=== PATIENT | female | born 1975 | race Caucasian/White ===

== ENCOUNTER 2024-09-24 17:16 | Inpatient (IN) | payer BC, SELFPAY ==
[2024-09-24] VITALS (12 sets, daily range): BP systolic 123–178; BP diastolic 75–110; BMI 28.5; BMI 28.7
[2024-09-24 14:27] LABS: % Basophils 0.5 % (0-2); % Eosinophils 6.1 % (0-6); % Immature Granulocytes 0.3 % (0-0.5); % Lymphocytes 22.2 % (20.5-51.1); % Monocytes 10.3 % (1.7-9.3); % Neutrophils 60.6 % (42.2-75.2); Absolute Basophils 0.1 10^3/uL (0-0.2); Absolute Eosinophils 0.6 10^3/uL (0-0.7); Absolute Lymphocytes 2.3 10^3/uL (1.2-3.4); Absolute Monocytes 1.1 10^3/uL (0.1-0.6); Absolute Neutrophils 6.2 10^3/uL (1.4-6.5); Hematocrit 41.9 % (37.0-47.0); Hemoglobin 14.4 g/dL (12.0-16.0); Mean Corp Hgb Conc. 34.4 g/dL (33.0-37.0); Mean Corpuscular Volume 87.3 fL (81.0-99.0); Mean Platelet Volume 10.8 fL (7.4-10.4); Nucleated Red Blood Cells % 0 %; Platelet Count 279 10^3/uL (130-400); Red Cell Dist. Width 12.6 % (11.5-14.5); White Blood Cell Count 10.2 10^3/uL (4.8-10.8)
[2024-09-24 14:43] LABS: ALT (SGPT) 37 U/L (0-35); AST (SGOT) 30 U/L (14-36); Albumin 4.7 g/dl (3.5-5.0); Alkaline Phosphatase 77 U/L (38-126); Blood Urea Nitrogen 16 mg/dl (7-17); Calcium 9.4 mg/dl (8.4-10.2); Carbon Dioxide 24 mmol/L (22-30); Chloride 103 mmol/L (98-107); Glucose 87 mg/dl (70-99); Potassium 4.2 mmol/L (3.5-5.1); Sodium 137 mmol/L (135-145); Total Bilirubin 0.9 mg/dl (0.2-1.3); eGFR > 60.00
[2024-09-24 14:52] LABS: Troponin I 0.197 ng/ml
--- NOTE | 2024-09-24 15:05 | EDRN ---
Deric Rouse notified of critical value troponin
--- NOTE | 2024-09-24 15:22 | ED.GENMED ---
History of Present Illness
<Dafne Morris NP - Last Filed: 09/25/24 23:34>
General
Chief Complaint: Abdominal Pain
Source: patient
Exam Limitations: none
Time Seen by Provider: 09/24/24 15:07
Nursing documentation reviewed up to this point in time: agreed with
History of Present Illness
History of Present Illness:
Patient to ED with complaint of left upper quad abd/left lower chest pain. She reports pain is under ribs. Symptoms started approx 1 week ago while sitting on couch. Reports pain is constant and dull but has episodes of sharp contraction like
pain with movement, cough, deep breathing. +nausea, no vomiting/diarrhea. Had URI a few weeks ago with cough but this has resolved. Eating and drinking normally. Reports sleep is disrupted because she continue to feel the pain. Brought to ED by
friend for eval. PMH asthma, hiatal hernia. States she saw cardiology in the past for epigastric pain. Denies any hear issues. States she was referred to GI, dx hiatal hernia.
Past History
<Dafne Morris NP - Last Filed: 09/25/24 23:34>
Past History
ED Past Medical History: Asthma and GERD (hiatal hernia)
ED Past Surgical History: Other (Chai stone)
Social History
Tobacco: Non-smoker
Alcohol: Occasional
Drug: None
Employment: Employed
Review of Systems
<Dafne Morris [employer] - Last Filed: 09/25/24 23:34>
Review of Systems
Allergies reviewed?: Yes
All Other Systems: ROS reviewed and negative except as documented in HPI and ROS
Constitutional: Reports no symptoms
Respiratory: Reports other (worsening pain with deep breathing, coughing)
Cardiac: Reports chest pain (Left lower chest pain, describes as under ribs)
ABD/GI: Reports abdominal pain (LUQ abd pain)
: Reports no symptoms
Musculoskeletal: Reports no symptoms
Skin: Reports no symptoms
Neurological: Reports no symptoms
Psychiatric: Reports no symptoms
Phy Exam
<Dafne Morris NP - Last Filed: 09/25/24 23:34>
General Physical Exam
General Presentation: well appearing and no apparent distress
General age: appears stated age
General Skin: warm and dry
General Habitus: normal
General Mental: alert
General Hydration: appears well hydrated
Cardiovascular Exam
Cardiovascular Exam: regular rate/rhythm and no edema
Pulmonary Exam
Pulmonary Exam: lungs clear, no respiratory distress and chest non tender (pain left lower chest wall)
Gastrointestinal Exam
Gastrointestinal Exam: normal bowel sounds, soft, no organomegaly, non distended and no cva tenderness
Palpation: left upper quadrant: Moderate tenderness, left lower quadrant: No tenderness, right upper quadrant: No tenderness and right lower quadrant: No tenderness
Musculoskeletal Exam
Musculoskeletal Exam: full ROM
Skin Exam
Skin Exam: normal color, warm/dry and no rash
Psychiatric Exam
Psychiatric Exam: normal mood/affect
Course
<Dafne Morris NP - Last Filed: 09/25/24 23:34>
Orders/Labs/Results
Orders:
Orders
09/24/24 12:53
EKG [Electrocardiogram (*1)] Urgent
Reason for Study: Abdominal Pain
EKG- Treatment ONCE
09/24/24 14:13
CMP [Comprehensive Metabolic Panel] Urgent
Complete Blood Count/With Diff Urgent
Lipase Urgent
09/24/24 14:18
Troponin I Urgent
09/24/24 Dinner
Cholesterol Lowering
At Your Request: Full Participation
Does patient need a safe tray?: No
Cholesterol Lowering: Sodium, 2 Gram
09/24/24 15:19
Aspirin 325 mg PO NOW STA
Heparin 4,000 units IV NOW STA
Nitroglycerin Sublingual [Nitrostat (Sublingual)] 0.4 mg SL NOW STA
Pharmacy Request to Place See Dose Instructions PO NOW STA
Discontinue all Active Warfarin orders?: Yes
09/24/24 15:30
Heparin 25513 Units/250 ml 25,000 units in 250 ml IV PER PROTOCOL
Weight to be used for heparin protocol in kilograms (kg):: 70.5
Protocol:: Cardiac Tx/Acute Coronary
PTT Goal Range to be used:: PTT 73 to 111 seconds
Order type:: Initial
INITIAL Infusion Dose (UNITS/KG/hr) & then follow protocol:: 15 units/kg/hr
Infusion Dose in UNITS/hr & then follow protocol (UNITS/hr):: 1,050
INFUSION RATE in mL/hr & then follow protocol (mL/hr):: 10.5
PTT less than or equal to 64 seconds:: Increase rate by 200 units/hr (+ 2 mL/hr)
PTT 64.1 to 72.9 seconds:: Increase rate by 100 units/hr (+ 1 mL/hr)
PTT 73 to 111 seconds:: Target Range. No change in rate.
PTT 111.1 to 130.9 seconds:: Decrease rate by 100 units/hr (- 1 mL/hr)
PTT 131 to 199.9 seconds:: HOLD for 1 hr. Then decrease rate by 200 units/hr (- 2 mL/hr)
PTT greater than or equal to 200 seconds:: HOLD for 2 hrs & Notify Provider. Then decrease by 200 units/hr (-
2 mL/hr)
Lab follow-up:: Each change, PTT q6h until 2 consecutive are therapeutic. Then PTT
daily.
09/24/24 15:32
CT Chest PE Study Urgent
Comment:
Reason For Exam: left chest/abd pain, elevated DDimer
09/24/24 15:40
PTT Urgent
Comment: Obtain baseline before beginning heparin infusion if not already collected
09/24/24 16:[address] See Dose Instructions IV DIRECTED
09/24/24 16:43
Admit/Transfer Patient As Directed
Co-Sign Provider:
Level of Care: Inpatient admission
Assign to:: Telemetry
Physician / Group: Kenrick Lee
Diagnosis: ACS r/o
Reason for Telemetry: Arrhythmia
Date to Stop Telemetry: 09/27/24
Time to Stop Telemetry: 11:00
Reason for Hospitalization: Chest pain for 1 week, elevated troponin. Cardiac workup with possible cath
Expected length of stay greater than two midnights?: Yes
ELOS- Estimated Length of Stay in days: 3
I certify the patient meets the requirements for IP care: Yes
PRN Pain Medication Management As Directed
May give lesser potent ordered pain med per pt: Yes
preference::
Protocol:: Medication orders for pain may be administered in a
manner that supports deferring to patient preference
when the pt is:
- Requesting an ordered lesser potent pain medication.
Least to most potent pain medications are defined
as: acetaminophen < NSAID < tramadol < opioids
(morphine, oxycodone, hydromorphone).
- Requesting a lesser dose of the same medication IF
ORDERED.
- Requesting a less intrusive route of administration
if both routes are prescribed by the provider (PO <
IV).
09/24/24 16:44
Code Status As Directed
Resuscitation Status: Full Code
09/24/24 16:46
Acetaminophen [Tylenol] 650 mg PO Q4HPRN PRN
Nitroglycerin Sublingual [Nitrostat (Sublingual)] 0.4 mg SL [id number] PRN
09/24/24 17:00
Pantoprazole [Protonix] 40 mg PO DAILY
09/24/24 18:35
Albuterol [ProAIR HFA INHALER] 2 puff INH R Q6HPRN PRN
Bisacodyl [Dulcolax] 10 mg RECTAL [id number] PRN
Bismuth Subsalicylate [Lima Bismuth] 525 mg PO DAILYPRN PRN
Docusate W/Senna [Senokot-S] 1 tablet PO BIDPRN PRN
Polyethylene Glycol Powder [Miralax] 17 grams PO DAILYPRN PRN
09/24/24 18:35
Activity As Directed
Activity Level: Out of Bed-Early Mobility
ECG as needed As Directed
ECG as needed for:: Chest Pain
Additional Instructions:: ECG with each troponin draw
Intake/ Output As Directed
Frequency: Per unit guidelines
Pneumatic Compression Sleeves As Directed
Type: Knee high
Vital Signs As Directed
Frequency: Per unit guidelines
Weight As Directed
Frequency: Daily
DX Deep Vein Thrombosis Video Routine
09/24/24 20:00
Fluticasone/Salmeterol 115/21 [Advair Hfa 115/21 Mcg Inhaler] 2 puff INH R BID
09/24/24 21:58
PTT Urgent
09/25/24
Echo 2D MMode Color/Doppler Routine
Reason for Study: AF
09/25/24 00:44
Troponin I Q6H
09/25/24 05:06
Basic Metabolic Panel IN AM
Cardiovascular Evaluation IN AM
Complete Blood Count/With Diff IN AM
Hemoglobin A1c [Glycohemoglobin (HgbA1c)] IN AM
Magnesium IN AM
Troponin I Q6H
09/27/24 11:00
DC Protocol for Telemetry ONCE
Abnormal Lab Results
09/24/24 09/24/24
14:13 14:18
MPV 10.8 H fL
(7.4-10.4)
Absolute Monos (auto) 1.1 H 10^3/uL
(0.1-0.6)
Monocytes % 10.3 H %
(1.7-9.3)
Eosinophils % 6.1 H %
(0-6)
ALT 37 H U/L
(0-35)
Troponin I 0.197 H* ng/ml
09/24/24 14:13
09/24/24 14:13
Vital Signs
Initial and Last Documented VS:
Initial Vital Signs
Temp Pulse Resp BP Pulse Ox
98 F 81 16 177/110 97
09/24/24 12:46 09/24/24 12:46 09/24/24 12:46 09/24/24 12:46 09/24/24 12:46
Last Documented Vital Signs
Temp Pulse Resp BP Pulse Ox
97.9 F 67 14 168/96 96
09/25/24 18:59 09/25/24 20:18 09/25/24 20:18 09/25/24 18:59 09/25/24 20:18
<Libia Holley MD - Last Filed: 09/24/24 15:35>
Orders/Labs/Results
Orders:
Orders
09/24/24 12:53
EKG [Electrocardiogram (*1)] Urgent
Reason for Study: Abdominal Pain
EKG- Treatment ONCE
09/24/24 14:13
CMP [Comprehensive Metabolic Panel] Urgent
Complete Blood Count/With Diff Urgent
Lipase Urgent
09/24/24 14:18
Troponin I Urgent
09/24/24 Dinner
Cholesterol Lowering
At Your Request: Full Participation
Does patient need a safe tray?: No
Cholesterol Lowering: Sodium, 2 Gram
09/24/24 15:19
Aspirin 325 mg PO NOW STA
Heparin 4,000 units IV NOW STA
Nitroglycerin Sublingual [Nitrostat (Sublingual)] 0.4 mg SL NOW STA
Pharmacy Request to Place See Dose Instructions PO NOW STA
Discontinue all Active Warfarin orders?: Yes
09/24/24 15:30
Heparin 40261 Units/250 ml 25,000 units in 250 ml IV PER PROTOCOL
Weight to be used for heparin protocol in kilograms (kg):: 70.5
Protocol:: Cardiac Tx/Acute Coronary
PTT Goal Range to be used:: PTT 73 to 111 seconds
Order type:: Initial
INITIAL Infusion Dose (UNITS/KG/hr) & then follow protocol:: 15 units/kg/hr
Infusion Dose in UNITS/hr & then follow protocol (UNITS/hr):: 1,050
INFUSION RATE in mL/hr & then follow protocol (mL/hr):: 10.5
PTT less than or equal to 64 seconds:: Increase rate by 200 units/hr (+ 2 mL/hr)
PTT 64.1 to 72.9 seconds:: Increase rate by 100 units/hr (+ 1 mL/hr)
PTT 73 to 111 seconds:: Target Range. No change in rate.
PTT 111.1 to 130.9 seconds:: Decrease rate by 100 units/hr (- 1 mL/hr)
PTT 131 to 199.9 seconds:: HOLD for 1 hr. Then decrease rate by 200 units/hr (- 2 mL/hr)
PTT greater than or equal to 200 seconds:: HOLD for 2 hrs & Notify Provider. Then decrease by 200 units/hr (-
2 mL/hr)
Lab follow-up:: Each change, PTT q6h until 2 consecutive are therapeutic. Then PTT
daily.
09/24/24 15:32
CT Chest PE Study Urgent
Comment:
Reason For Exam: left chest/abd pain, elevated DDimer
09/24/24 15:40
PTT Urgent
Comment: Obtain baseline before beginning heparin infusion if not already collected
09/24/24 16:[address] See Dose Instructions IV DIRECTED
09/24/24 16:43
Admit/Transfer Patient As Directed
Co-Sign Provider:
Level of Care: Inpatient admission
Assign to:: Telemetry
Physician / Group: Kenrick Lee
Diagnosis: ACS r/o
Reason for Telemetry: Arrhythmia
Date to Stop Telemetry: 09/27/24
Time to Stop Telemetry: 11:00
Reason for Hospitalization: Chest pain for 1 week, elevated troponin. Cardiac workup with possible cath
Expected length of stay greater than two midnights?: Yes
ELOS- Estimated Length of Stay in days: 3
I certify the patient meets the requirements for IP care: Yes
PRN Pain Medication Management As Directed
May give lesser potent ordered pain med per pt: Yes
preference::
Protocol:: Medication orders for pain may be administered in a
manner that supports deferring to patient preference
when the pt is:
- Requesting an ordered lesser potent pain medication.
Least to most potent pain medications are defined
as: acetaminophen < NSAID < tramadol < opioids
(morphine, oxycodone, hydromorphone).
- Requesting a lesser dose of the same medication IF
ORDERED.
- Requesting a less intrusive route of administration
if both routes are prescribed by the provider (PO <
IV).
09/24/24 16:44
Code Status As Directed
Resuscitation Status: Full Code
09/24/24 16:46
Acetaminophen [Tylenol] 650 mg PO Q4HPRN PRN
Nitroglycerin Sublingual [Nitrostat (Sublingual)] 0.4 mg SL [id number] PRN
09/24/24 17:00
Pantoprazole [Protonix] 40 mg PO DAILY
09/24/24 18:35
Albuterol [ProAIR HFA INHALER] 2 puff INH R Q6HPRN PRN
Bisacodyl [Dulcolax] 10 mg RECTAL [id number] PRN
Bismuth Subsalicylate [Lima Bismuth] 525 mg PO DAILYPRN PRN
Docusate W/Senna [Senokot-S] 1 tablet PO BIDPRN PRN
Polyethylene Glycol Powder [Miralax] 17 grams PO DAILYPRN PRN
09/24/24 18:35
Activity As Directed
Activity Level: Out of Bed-Early Mobility
ECG as needed As Directed
ECG as needed for:: Chest Pain
Additional Instructions:: ECG with each troponin draw
Intake/ Output As Directed
Frequency: Per unit guidelines
Pneumatic Compression Sleeves As Directed
Type: Knee high
Vital Signs As Directed
Frequency: Per unit guidelines
Weight As Directed
Frequency: Daily
DX Deep Vein Thrombosis Video Routine
09/24/24 20:00
Fluticasone/Salmeterol 115/21 [Advair Hfa 115/21 Mcg Inhaler] 2 puff INH R BID
09/24/24 21:58
PTT Urgent
09/25/24
Echo 2D MMode Color/Doppler Routine
Reason for Study: AF
09/25/24 00:44
Troponin I Q6H
09/25/24 05:06
Basic Metabolic Panel IN AM
Cardiovascular Evaluation IN AM
Complete Blood Count/With Diff IN AM
Hemoglobin A1c [Glycohemoglobin (HgbA1c)] IN AM
Magnesium IN AM
Troponin I Q6H
09/27/24 11:00
DC Protocol for Telemetry ONCE
Abnormal Lab Results
09/24/24 09/24/24
14:13 14:18
MPV 10.8 H fL
(7.4-10.4)
Absolute Monos (auto) 1.1 H 10^3/uL
(0.1-0.6)
Monocytes % 10.3 H %
(1.7-9.3)
Eosinophils % 6.1 H %
(0-6)
ALT 37 H U/L
(0-35)
Troponin I 0.197 H* ng/ml
09/24/24 14:13
09/24/24 14:13
Vital Signs
Initial and Last Documented VS:
Initial Vital Signs
Temp Pulse Resp BP Pulse Ox
98 F 81 16 177/110 97
09/24/24 12:46 09/24/24 12:46 09/24/24 12:46 09/24/24 12:46 09/24/24 12:46
Last Documented Vital Signs
Temp Pulse Resp BP Pulse Ox
97.9 F 67 14 168/96 96
09/25/24 18:59 09/25/24 20:18 09/25/24 20:18 09/25/24 18:59 09/25/24 20:18
<Dafne Morris NP - Last Filed: 09/25/24 23:34>
*Critical Care Note
Total Time (30-74mins, 75-104mins- exclusive of procedures): Not Applicable
<Dafne Morris NP - Last Filed: 09/25/24 23:34>
Update Note
Update Note:
Patient to ED with complaint of left lower chest/LUQ abdominal pain. Pain started one week ago. COnstant dull pain. Pain becomes sharg and then 'contraction like' with deep breathing, cough, sneezing. EKG NSR, Troponine .197. Case discussed
with dr. holley. WIll initiate ACS protical with ASA, SL NTG, Heparin infusion. WIll obtain Chest CT to r/o PE. Pulse ox remains 98% RA. Admit to hospitalist service.
ED Attending Note
<Dafne Morris [employer] - Last Filed: 09/25/24 23:34>
-
Portions of this chart may have been created with voice recognition software.� Occasional wrong word or��sound alike� substitutions may have occurred due to the inherent limitations of voice recognition software.
<Libia Holley MD - Last Filed: 09/24/24 15:35>
ED Attending Note
Patient seen and examined by attending physician: Yes
I performed the substantive portion of visit, reviewed & personally made and approve the management plan that is documented in note by myself or NICK.: Yes
ED Attending Note:
49-year-old female with complaints of left lower anterior chest wall/upper quadrant pain that is described as 'dull' and constant for 1 week. Sometimes the pain changes particular if she moves a certain way and it will start to feel 'sharp', or if
she coughs. She thought it might be gas, but has not gone away which prompted her visit here. Sometimes she feels like she got the wind 'knocked out of me', without any specific provoking or relieving factors. She denies dyspnea, nausea,
vomiting, diaphoresis, neck pain, leg swelling, estrogen use, smoking history, family or personal history of clots, or other PE risk factors. She states that she had a 'mild heart attack' 10 years ago and sees a cell tender once a year but denies
a catheterization or stent placement. She also states that there is a family history of coronary disease but is unclear if it was early. No history of aortic disease and family. On exam, patient awake alert nontoxic well-appearing. Does describe
a 5 out of 10 dull discomfort which has been constant. Heart regular rate and rhythm. Grossly neuro intact. Troponin and ECG noted. Patient will be started on a heparin drip, nitroglycerin, aspirin, and a CT PE study pending. Hospitalist to be
made aware goal to be to make patient pain-free in the meantime.
Discharge Plan
Departure
Patient Disposition: Admit
Date of Disposition: 09/24/24
Time of Disposition: 15:37
Presentation/result/management discussed w/ accepting MD/DO: Hospitalist
Patient with high blood pressure during this ER visit?: Yes
Condition: Fair
Covid-19: Not Applicable
Discharge Problem:
Chest pain, ACS (acute coronary syndrome)
Interventions
Interventions:
*Risk Screen - Suicide Last Done: 09/24/24 18:22
*General Assessment Last Done: 09/24/24 18:00
*Neglect/Abuse Screening Last Done: 09/24/24 12:46
ED- Fall Risk Assessment Last Done: 09/24/24 14:50
*ED COVID-19 Vaccine History Last Done: 09/24/24 14:47
*Nursing Disposition Last Done: 09/24/24 18:00
Discharge Date and Time
Discharge Date/Time: 09/24/24 18:01
[2024-09-24] MEDS: HEPARIN 25000 UNITS/250 ML IV (15:46)
[2024-09-24] MEDS: HEPARIN 4000 UNITS IV (15:47)
[2024-09-24] MEDS: NITROSTAT (SUBLINGUAL) 0.4 MG SL (15:49)
[2024-09-24] MEDS: ASPIRIN 325 MG PO (15:49)
[2024-09-24 16:01] LABS: APTT 28.9 Sec (23.4-35.0)
--- NOTE | 2024-09-24 16:40 | HPS.HSE ---
Addendum entered and electronically signed by Kenrick Lee DO 09/24/24 18:56:
Spoke with cardiology, cannot rule out pericarditis despite normal ECG. Will F/U TTE and give dose of colchicine with consideration for colchicine + NSAID pending further evidence of the etiology. Will also add-on lipase to ED blood work
Original Note:
Family Physician
-
Family Physician: * NONE
Chief Complaint
-
Chest/epigastric pain
History of Present Illness
49-year-old female with Asthma and GERD/HH that is presenting to the emergency department today with a complaint of chest pain/epigastric pain. States that the pain feels like it is under her ribs, started roughly 1 week ago when she was sitting on
the couch. Pain has been constant, characterized as dull with intermittent episodes of sharp pain most notable with movement, coughing or deep breathing. Symptoms have been associated with nausea but no vomiting or diarrhea. Mentions she had a
upper respiratory infection a few weeks ago with a cough that has since resolved. Her sleep has been disrupted secondary to the pain. Was brought into the emergency department by her friend today. She denies worsening of symptoms with exertion.
Denies significant smoking or alcohol use history. States that she does have history of heart disease with her maternal grandmother and aunt though no disease noted in her immediate family. Upon arrival to the ED was hypertensive but otherwise
hemodynamically stable and on room air, no fevers. Labs with troponin 0.197 but otherwise unremarkable. ECG with normal sinus rhythm and no acute ST changes, T wave abnormalities, STEMI equivalents nor evidence of Q waves. CTA thorax PE protocol
ordered with results pending. In the ED was given full dose aspirin and subsequently started on heparin drip. Chest pain improved after 2 doses of nitroglyceri SL.
Medical History
Past Medical History
Past Medical History: Reports Asthma and GERD
Past Surgical History: Reports Urological (Stone retrieval in 2006)
Social History
Tobacco: Non-smoker
Alcohol: Occasional
Drug: None
Family History
Family History: Other (CHF: maternal aunt and grandmother)
Allergies / Home Medications
Allergies reflects when Allergies were last updated in [employer].
Home Medications with original date entered in [employer]
Allergy/Medication List:
Allergies
Allergy/AdvReac Type Severity Reaction Status Date / Time
No Known Allergies Allergy Verified 09/24/24 15:56
Home Medications
albuterol sulfate 90 mcg/actuation aerosol inhaler 2 puff inhalation R Q6HPRN PRN SOB 09/24/24
bismuth subsalicylate 262 mg/15 mL oral suspension (Pepto-Bismol) 524 mg PO DAILYPRN PRN STOMACH ISSUSES 09/24/24
fluticasone 250 mcg-salmeterol 50 mcg/dose blistr powdr for inhalation (Advair Diskus) 1 inh inhalation R BID 09/24/24
ibuprofen 200 mg tablet (Advil) 200 mg PO Q6HPRN PRN MILD PAIN 09/24/24
Review of Systems
-
History Source: Patient
A 12 point ROS was completed and negative except as noted: Yes
Constitutional: Reports No Symptoms
EENT: Reports No Symptoms
Respiratory: Reports No Symptoms
Cardiac: Reports See HPI
Abdomen/GI: Reports See HPI
: Reports No Symptoms
Musculoskeletal: Reports No Symptoms
Skin: Reports No Symptoms
Neurological: Reports No Symptoms
Endocrine: Reports No Symptoms
Hematologic/Lymphatic: Reports No Symptoms
Psych: Reports No Symptoms
Physical Exam
Vital Signs
Vital Signs
Temp Pulse Resp BP Pulse Ox
98 F 82 27 154/90 95
09/24/24 12:46 09/24/24 16:15 09/24/24 16:15 09/24/24 16:00 09/24/24 16:15
Physical Exam
General: Well Developed, Well Nourished and No Apparent Distress
HEENT: NormoCephalic, Anicteric, Moist mucous membranes, Atraumatic and PERRLA
Respiratory: Clear and Non Labored Respirations; No Accessory Resp Muscle Use
Cardiac: S1/S2 and Regular Rhythm; No Murmur, Rub, Gallop, Peripheral Edema or JVD
GI: Soft, Non Tender, Non Distended and Normal Bowel Sounds
Musculoskeletal: No Clubbing, No Cyanosis and Normal Gait & Station
Skin: Warm and Dry; No Rash or Jaundice
Neuro: AO x 3 and Cranial Nerves Intact; No Tremors
Psych: Calm
Laboratory Results
-
09/24/24 14:13
09/24/24 14:13
Laboratory Results
APTT 28.9 Sec (23.4-35.0) 09/24/24 15:40
Total Bilirubin 0.9 mg/dl (0.2-1.3) 09/24/24 14:13
AST 30 U/L (14-36) 09/24/24 14:13
ALT 37 U/L (0-35) H 09/24/24 14:13
Alkaline Phosphatase 77 U/L (38-126) 09/24/24 14:13
Troponin I 0.197 ng/ml H* 09/24/24 14:18
Data Reviewed
-
Lab Data: Labs Reviewed by me and Discussed with Physician ([employer])
Impression/Plan
-
#Chest pain
-Concern for NSTEMI/MINOCA v. PE; cannot rule out GERD/gastritis versus MSK cause
-Presented with atypical chest pain over 1 week, persistent and pleuritic quality
-Does not seem to have underlying comorbidities elevated risk
-Upon arrival ECG nonischemic, no Q waves; initial troponin 0.197
-Was given full dose aspirin and started on heparin drip while in the ED
-No signs of renal insufficiency or other contraindications to angiography
-Melanie score 56 correlating to 1% 6-month mortality risk
Plan
-Continue with IV heparin drip with cardiac protocol
-Trend troponin with serial ECG, admit to telemetry
-Defer against beta-blockade unless HR accelerates
-Check fasting lipid panel, A1c, CXR and CT PE protocol
-Check echocardiogram for WMA and systolic dysfunction
-Cardiology consult for consideration of LHC
-PRN nitroglycerine SL
-PPI trial
#Asthma
-Home regimen includes Advair twice daily and albuterol MDI as needed
-No signs of CO2 retention or asthma exacerbation at this time
-Monitor respiratory status
#GERD with hiatal hernia
-Home regimen includes bismuth subsalicylate
-Outpatient med rec also shows ibuprofen
-Will start oral PPI to assess for improved symptoms
-Avoid NSAIDs
DVT prophylaxis: Heparin drip
Diet: Cholesterol-lowering, NPO at midnight
CODE STATUS: Full code
Disposition: Admit to telemetry
--- NOTE | 2024-09-24 18:15 | CON.CAR ---
Consultation
Consultation Request
Date/Time Consultation Requested: September 24, 2024 5:30 PM
Date/Time Consultation Performed: September 24, 2024 6:30 PM
Requesting Provider: Hospitalist
Performing Provider: Luis Daniel Avila
Reason for Consultation: Chest pain
Medical History
-
Chief Complaint: chest/epigastric pain
History of Present Illness:
49-year-old female with history of asthma, GERD, and hiatal hernia who is here for evaluation of left upper quadrant abdominal and left-sided chest pain. She says it has been ongoing for about a week. It started while she was sitting on the couch.
It has been waxing and waning and has interrupted her sleep. She tells me it is positional and it feels better laying fwd and on her left side. It is constant and is characterized as dull with intermittent episodes of sharp pain especially with
movement coughing or deep breathing. She had a URI a few weeks ago that has since resolved. Finally, she has taken ibuprofen intermittently which improved her symptoms.
Past Medical History
Past Medical History: Other (asthma, GERD, and hiatal hernia)
Social History
Tobacco: Non-Smoker
Alcohol: Occasional
Drug: None
Family History
Family History: Reviewed & Not Pertinent
Allergies / Home Medications
Allergy/AdvReac Type Severity Reaction Status Date / Time
No Known Allergies Allergy Verified 09/24/24 15:56
�Medication �Instructions �Recorded �Confirmed �Type
albuterol sulfate 90 mcg/actuation 2 puff inhalation R Q6HPRN PRN SOB 09/24/24 09/24/24 History
aerosol inhaler
bismuth subsalicylate 262 mg/15 mL 524 mg PO DAILYPRN PRN STOMACH 09/24/24 09/24/24 History
oral suspension (Pepto-Bismol) ISSUSES
fluticasone 250 mcg-salmeterol 50 1 inh inhalation R BID 09/24/24 09/24/24 History
mcg/dose blistr powdr for
inhalation (Advair Diskus)
ibuprofen 200 mg tablet (Advil) 200 mg PO Q6HPRN PRN MILD PAIN 09/24/24 09/24/24 History
Review of Systems
-
All other systems: Negative unless noted
Physical Exam
Vital Signs
Temp Pulse Resp BP Pulse Ox
98 F 82 21 138/93 95
09/24/24 12:46 09/24/24 17:57 09/24/24 17:57 09/24/24 17:00 09/24/24 17:15
Lab Results
09/24/24 14:13
09/24/24 14:13
Troponin I 0.197 ng/ml H* 09/24/24 14:18
Physical Exam
General: Well Developed, Well Nourished and No Apparent Distress
HEENT: Normocephalic
Respiratory: Clear and Non Labored Respirations
Cardiac: S1/S2 and Regular Rhythm
GI: Soft and Other (Point tenderness mid clavicular line underneath rib cage)
Musculoskeletal: No Cyanosis and No Edema
Skin: Warm and Dry
Neuro: AO x 3
Psych: Calm
Impression / Plan
-
A/P: 49-year-old female with past medical history of GERD, hiatal hernia, and asthma who is here for evaluation of left-sided chest discomfort. It is not clear to me that this is acute coronary syndrome as she has no typical symptoms of angina.
Her symptoms seem to be most consistent with pericarditis/myopericarditis as her cardiac troponins are elevated. Additionally, the pleuritic nature, improvement on ibuprofen, and improvement with position seem to support a
pericarditis/myopericarditis diagnosis. She also had a viral URI within the last few weeks. Her ECG is also normal with no significant ischemic changes as well.
ACS versus pericarditis/myopericarditis given elevated troponin
-Trend troponin
-Start colchicine 0.6 mg twice daily
-Obtain echocardiogram
-Lipid profile hemoglobin A1c
-If troponins are relatively flat and echocardiogram has normal function likely supportive of pericarditis/myopericarditis I would consider cardiac MRI to support diagnosis
-Pericarditis/myopericarditis we would then treat with high-dose NSAIDs likely ibuprofen 800 mg 3 times daily for 4 weeks with tapering by 200 mg each week and colchicine for 3 months
-Rule out other causes including pancreatitis although less likely
Data Reviewed
-
EKG: Tracing Personally Visualized and interpreted (sr)
Radiology: Image Personally Visualized and interpreted and Discussed with Physician
CT Scan: Image Personally Visualized and interpreted and Discussed with Physician
Labs: Labs Reviewed by me and Discussed with Physician
[2024-09-24] MEDS: PROTONIX 40 MG PO (18:42)
[2024-09-24 19:09] LABS: Troponin I 0.176 ng/ml
[2024-09-24 19:34] LABS: Lipase 105 U/L (23-300)
[2024-09-24] MEDS: TYLENOL 650 MG PO (20:08)
[2024-09-24] MEDS: COLCHICINE 0.6 MG PO (20:09)
[2024-09-24] MEDS: ASPIRIN 650 MG PO (20:42)
[2024-09-24 22:19] LABS: APTT 67.5 Sec (23.4-35.0)
--- NOTE | 2024-09-25 01:09 | PTCARENOTE ---
Received patient on Heparin at 1050unit/hr. Reviewed order for ASA with [employer]FT TIME CLERK, covering floor(verified with Cards) and Pharmacy. Administered per order. Heparin adjusted per protocol for PTT. Troponin 0.176, continue to trend.
[2024-09-25] MEDS: ADVAIR HFA 115/21 MCG INHALER INH (02:50)
[2024-09-25] MEDS: TYLENOL 650 MG PO ×2 (03:23→19:03)
[2024-09-25 03:50] VITALS: BP 137/75
[2024-09-25 05:17] VITALS: BMI 28.6
[2024-09-25 05:26] LABS: APTT 97.6 Sec (23.4-35.0)
[2024-09-25 05:43] LABS: % Basophils 0.7 % (0-2); % Eosinophils 7.9 % (0-6); % Immature Granulocytes 0.1 % (0-0.5); % Monocytes 8.6 % (1.7-9.3); % Neutrophils 51.7 % (42.2-75.2); Absolute Basophils 0.1 10^3/uL (0-0.2); Absolute Eosinophils 0.6 10^3/uL (0-0.7); Absolute Lymphocytes 2.5 10^3/uL (1.2-3.4); Absolute Monocytes 0.7 10^3/uL (0.1-0.6); Absolute Neutrophils 4.2 10^3/uL (1.4-6.5); Hematocrit 41.7 % (37.0-47.0); Hemoglobin 14.3 g/dL (12.0-16.0); Mean Corp Hgb Conc. 34.3 g/dL (33.0-37.0); Mean Corpuscular Hgb 30.2 pg (27.0-31.0); Mean Platelet Volume 11.6 fL (7.4-10.4); Nucleated Red Blood Cells % 0 %; Platelet Count 261 10^3/uL (130-400); Red Blood Cell Count 4.74 10^6/uL (4.20-5.40); Red Cell Dist. Width 12.7 % (11.5-14.5); White Blood Cell Count 8.1 10^3/uL (4.8-10.8)
[2024-09-25] MEDS: MOTRIN 400 MG PO (05:44)
[2024-09-25 05:50] LABS: Troponin I 0.149 ng/ml
[2024-09-25 05:57] LABS: Blood Urea Nitrogen 18 mg/dl (7-17); Carbon Dioxide 23 mmol/L (22-30); Chloride 108 mmol/L (98-107); Estimated Creatinine Clearance 103 ml/min; Glucose 96 mg/dl (70-99); HDL Cholesterol 56 mg/dl; LDL Cholesterol, Calculated 97 mg/dl; Magnesium 2.2 mg/dl (1.6-2.3); Potassium 3.9 mmol/L (3.5-5.1); Sodium 136 mmol/L (135-145); Total Cholesterol 179 mg/dl (50-199); Triglyceride 130 mg/dl (10-149); Very Low Density Lipoprotein 26 mg/dl (0-30); eGFR > 60.00
[2024-09-25 07:20] VITALS: BP 141/88
[2024-09-25] MEDS: ADVAIR HFA 115/21 MCG INHALER 2 PUFF INH ×2 (07:37→20:18)
[2024-09-25] MEDS: COLCHICINE 0.6 MG PO ×2 (07:56→19:03)
[2024-09-25] MEDS: PROTONIX 40 MG PO (07:56)
[2024-09-25 09:02] LABS: Glycohemoglobin (HgbA1c) 5.8 % (4.0-5.6)
--- NOTE | 2024-09-25 09:25 | W.PN.HOSP.TC ---
Today's Communication/Plan
-
see bold
Assessment / Plan
Assessment / Plan
#Acute myopericarditis
#Chest pain
-Appreciate cardiology input, recommend colchicine 0.6 mg twice daily for at least 3 months, & ibuprofen taper 800 mg tid for 1 week, then 600 mg tid for 1 week, 400 mg for 1 week, and 200 mg for 1 week and stop
-PPI for GI protection
-Discontinue heparin drip
-Echo reviewed, unremarkable
-Plan for discharge tomorrow with improvement in pain
#Glucose intolerance
Hemoglobin A1c 5.8
Patient informed, recommend dietary modifications
#Asthma
-Home regimen includes Advair twice daily and albuterol MDI as needed
-No signs of CO2 retention or asthma exacerbation at this time
-Monitor respiratory status
#GERD with hiatal hernia
-Home regimen includes bismuth subsalicylate
-Outpatient med rec also shows ibuprofen
-Will start oral PPI to assess for improved symptoms
DVT prophylaxis�SCDs
Full Code
Insert total time spent to see the patient on the floor, examine the patient, review data and lab results, discuss treatment plan with patient, nursing staff around 50 minutes.
Physical Exam
General: Obese, no acute distress
HEENT: Normocephalic, Atraumatic, EOMI, MMM
Respiratory: Clear to Auscultation bilaterally
Cardiac: Normal S1/S2, Regular Rate and Rhythm
GI: Soft, Nontender, Nondistended, Normal Bowel Sounds
Extremities: No Clubbing, Cyanosis, or Edema
Neuro: Nonfocal/Grossly Intact
Psych: Calm, Cooperative
Anticipated Discharge: Within 24 hours
Subjective/Interval History
-
Date of Service: September 25, 2024
Patient reports her chest pain has improved. She has pain with inspiration and movement. No fever, no vomiting.
Objective Data
-
Labs:
Laboratory Results
02/23/25 02/24/25 02/24/25
21:58 05:06 11:30
WBC 8.1
Hgb 14.3
Hct 41.7
Plt Count 261
APTT 67.5 H 97.6 H Pending
Sodium 136
Potassium 3.9
Chloride 108 H
Carbon Dioxide 23
BUN 18 H
Creatinine 0.5 L
Glucose 96
Calcium 9.0
Vital Signs:
Vital Signs
Temp Pulse Resp BP Pulse Ox
98.1 F 64 15 141/88 95
09/25/24 07:20 09/25/24 07:41 09/25/24 07:41 09/25/24 07:20 09/25/24 07:41
I&O
09/24/24 09/25/24 09/26/24
06:59 06:59 06:59
Intake Total 240 / 240
Balance 240 / 240
[2024-09-25 11:08] VITALS: BP 141/86
--- NOTE | 2024-09-25 12:56 | W.PN.CD ---
Today's Communication / Plan
-
- Start colchicine 0.6 mg twice daily for at least 3 months
- Ibuprofen taper, 800 mg tid for 1 week, then 600 mg tid for 1 week, 400 mg for 1 week, and 200 mg for 1 week and stop
- PPI for GI protection
Impression / Plan
-
A/P: 49-year-old female with past medical history of GERD, hiatal hernia, and asthma who is here for evaluation of left-sided chest discomfort. It is not clear to me that this is acute coronary syndrome as she has no typical symptoms of angina.
Her symptoms seem to be most consistent with pericarditis/myopericarditis as her cardiac troponins are elevated. Additionally, the pleuritic nature, improvement on ibuprofen, and improvement with position seem to support a
pericarditis/myopericarditis diagnosis. She also had a viral URI within the last few weeks. Her ECG is also normal with no significant ischemic changes as well.
Myopericarditis
-Trop peak at 0.197
-Start colchicine 0.6 mg twice daily for at least 3 months
-Ibuprofen taper, 800 mg tid for 1 week, then 600 mg tid for 1 week, 400 mg for 1 week, and 200 mg for 1 week and stop
- PPI for GI protection
-Lipid profile hemoglobin A1c
- echo below
- should limit activity to limit exertion until pain resolves and for at least 3 months
Subjective: Ibuprofen continues to improve pain
Echo CONCLUSIONS
Normal LV size and function without regional wall motion normality.
LVEF is 60-65% by visual estimation. Normal diastolic function.
Normal right ventricular size and function.
Mild mitral regurgitation.
Right heart pressures could not be determined.
No prior study available for comparison.
Physical Exam
Vital Signs/Labs
Vital Signs
Temp Pulse Resp BP Pulse Ox
97.9 F 68 18 141/86 96
09/25/24 11:08 09/25/24 11:08 09/25/24 11:08 09/25/24 11:08 09/25/24 11:08
09/24/24 09/25/24 09/26/24
06:59 06:59 06:59
Actual Weight 156 lb 6 oz
09/25/24 05:06
09/25/24 05:06
APTT Cancelled 09/25/24 11:30
Magnesium 2.2 mg/dl (1.6-2.3) 09/25/24 05:06
Triglycerides 130 mg/dl (10-149) 09/25/24 05:06
LDL Cholesterol, Calc 97 mg/dl 09/25/24 05:06
VLDL Cholesterol, Calc 26 mg/dl (0-30) 09/25/24 05:06
HDL Cholesterol 56 mg/dl 09/25/24 05:06
LAB Results
09/24/24 09/24/24 09/25/24
14:18 18:21 00:44
Troponin I 0.197 H* 0.176 H* 0.170 H*
09/25/24 09/25/24
05:06 12:35
Troponin I 0.149 H* Cancelled
Physical Exam
Constitutional: No acute distress
EENT: Anicteric
Cardiovascular: Rhythm & rate is regular
Respiratory: Respiratory effort normal and Lungs clear to auscul.
GI: Soft
Neuro/Psych: AO x 3
Data Reviewed
-
Date of Service: September 25, 2024
EKG: Tracing Personally Visualized and interpreted (sr)
Echo: Tracing Personally Visualized and interpreted and Report Reviewed by me
Labs: Labs Reviewed by me
[2024-09-25 14:00] LABS: Erythrocyte Sed Rate 6 mm/hour (0-20)
[2024-09-25] MEDS: MOTRIN 800 MG PO ×2 (14:26→21:15)
[2024-09-25 15:10] VITALS: BP 150/85
--- NOTE | 2024-09-25 15:47 | CM ---
Alert awake oriented patient who lives with her SO Doreen who lives in a 2 story home with 0 steps to enter and 15 to bed bathroom. She is independent in driving and in all activities of daily living.Offered VN she declined.
No adaptive devices
Never had VN/SNF
Pharmacy [facility]
PCP None given [facility] Resident #[phone]
PLAN Home no needs
[2024-09-25 18:59] VITALS: BP 168/96
[2024-09-25 23:55] VITALS: BP 164/96
[2024-09-26 03:53] VITALS: BP 138/83
[2024-09-26 05:21] VITALS: BMI 28.6
--- NOTE | 2024-09-26 07:43 | W.PN.CD ---
Addendum entered and electronically signed by Luis Daniel Avila MD 09/26/24 08:35:
The taper is to be 800 mg q6hrs for 1 week, 800 mg tid for 1 week, then 600 mg tid for 1 week, 400 mg tid for 1 week, and 200 mg tid for 1 week and stop
Original Note:
Today's Communication / Plan
-
colchicine 0.6 mg twice daily for at least 3 months
Ibuprofen taper
- 800 mg q6hrs for 1 week, 800 mg tid for 1 week, then 600 mg tid for 1 week, 400 mg for 1 week, and 200 mg for 1 week and stop
Follow up appt is October 18 at 1 pm with Precious Dowd
We will sign off please call with questions/concerns.
Impression / Plan
-
A/P: 49-year-old female with past medical history of GERD, hiatal hernia, and asthma who is here for evaluation of left-sided chest discomfort. It is not clear to me that this is acute coronary syndrome as she has no typical symptoms of angina.
Her symptoms seem to be most consistent with pericarditis/myopericarditis as her cardiac troponins are elevated. Additionally, the pleuritic nature, improvement on ibuprofen, and improvement with position seem to support a
pericarditis/myopericarditis diagnosis. She also had a viral URI within the last few weeks. Her ECG is also normal with no significant ischemic changes as well.
Myopericarditis
-Trop peak at 0.197
- colchicine 0.6 mg twice daily for at least 3 months
-Ibuprofen taper, 800 mg q6hrs for 1 week, 800 mg tid for 1 week, then 600 mg tid for 1 week, 400 mg for 1 week, and 200 mg for 1 week and stop
- PPI for GI protection
-Lipid profile hemoglobin A1c
- echo below
- should limit activity to limit exertion until pain resolves and for at least 3 months
Subjective: Overall symptoms are significantly improved
Echo CONCLUSIONS
Normal LV size and function without regional wall motion normality.
LVEF is 60-65% by visual estimation. Normal diastolic function.
Normal right ventricular size and function.
Mild mitral regurgitation.
Right heart pressures could not be determined.
No prior study available for comparison.
Physical Exam
Vital Signs/Labs
Vital Signs
Temp Pulse Resp BP Pulse Ox
97.9 F 66 18 138/83 96
09/26/24 03:53 09/26/24 03:53 09/26/24 03:53 09/26/24 03:53 09/26/24 03:53
09/25/24 09/26/24 09/27/24
06:59 06:59 06:59
Actual Weight 156 lb 6 oz 156 lb 4.8 oz
09/25/24 05:06
09/25/24 05:06
APTT Cancelled 09/25/24 11:30
Magnesium 2.2 mg/dl (1.6-2.3) 09/25/24 05:06
Triglycerides 130 mg/dl (10-149) 09/25/24 05:06
LDL Cholesterol, Calc 97 mg/dl 09/25/24 05:06
VLDL Cholesterol, Calc 26 mg/dl (0-30) 09/25/24 05:06
HDL Cholesterol 56 mg/dl 09/25/24 05:06
LAB Results
09/24/24 09/24/24 09/25/24
14:18 18:21 00:44
Troponin I 0.197 H* 0.176 H* 0.170 H*
09/25/24 09/25/24
05:06 12:35
Troponin I 0.149 H* Cancelled
Physical Exam
Constitutional: No acute distress and Comfortable
EENT: Anicteric
Cardiovascular: Rhythm & rate is regular and Pedal edema is absent
Respiratory: Respiratory effort normal and Lungs clear to auscul.
GI: Soft
Neuro/Psych: AO x 3
Data Reviewed
-
Date of Service: September 26, 2024
EKG: Tracing Personally Visualized and interpreted (sr)
Echo: Tracing Personally Visualized and interpreted and Report Reviewed by me
Labs: Labs Reviewed by me
[2024-09-26 07:55] VITALS: BP 125/80
[2024-09-26] MEDS: ADVAIR HFA 115/21 MCG INHALER 2 PUFF INH (07:56)
[2024-09-26] MEDS: MOTRIN 800 MG PO ×2 (08:58→12:59)
[2024-09-26] MEDS: COLCHICINE 0.6 MG PO (08:58)
[2024-09-26] MEDS: PROTONIX 40 MG PO (08:58)
--- NOTE | 2024-09-26 09:06 | W.PN.HOSP.TC ---
Today's Communication/Plan
-
Cleared by cardiology for discharge today
Assessment / Plan
Assessment / Plan
#Acute myopericarditis
#Chest pain
-S/p heparin drip
-Appreciate cardiology input, recommend colchicine 0.6 mg twice daily for at least 3 months, & ibuprofen taper 800 mg q6hrs for 1 week, 800 mg tid for 1 week, then 600 mg tid for 1 week, 400 mg tid for 1 week, and 200 mg tid for 1 week and stop
-PPI for GI protection
-Echo reviewed, results below
-Cleared by cardiology for discharge today, follow-up with cardiology in the office as scheduled on October 18 at 1 pm with Precious Dowd
Echo CONCLUSIONS
Normal LV size and function without regional wall motion normality.
LVEF is 60-65% by visual estimation. Normal diastolic function.
Normal right ventricular size and function.
Mild mitral regurgitation.
Right heart pressures could not be determined.
No prior study available for comparison.
#Nonischemic myocardial injury troponin elevation
Treat as above
#Glucose intolerance
Hemoglobin A1c 5.8
Patient informed, recommend dietary modifications
#Asthma
-Home regimen includes Advair twice daily and albuterol MDI as needed
-No signs of CO2 retention or asthma exacerbation at this time
-Monitor respiratory status
#GERD with hiatal hernia
-Home regimen includes bismuth subsalicylate
-Outpatient med rec also shows ibuprofen
-Will start oral PPI to assess for improved symptoms
DVT prophylaxis�SCDs
Full Code
Physical Exam
General: Obese, no acute distress
HEENT: Normocephalic, Atraumatic, EOMI, MMM
Respiratory: Clear to Auscultation bilaterally
Cardiac: Normal S1/S2, Regular Rate and Rhythm
GI: Soft, Nontender, Nondistended, Normal Bowel Sounds
Extremities: No Clubbing, Cyanosis, or Edema
Neuro: Nonfocal/Grossly Intact
Psych: Calm, Cooperative
Anticipated Discharge: Today
Subjective/Interval History
-
Date of Service: September 26, 2024
Patient reports improvement in her chest pain. No fever, no vomiting.
Objective Data
-
Vital Signs:
Vital Signs
Temp Pulse Resp BP Pulse Ox
97.6 F 65 16 125/80 97
09/26/24 07:55 09/26/24 07:59 09/26/24 07:59 09/26/24 07:55 09/26/24 07:59
I&O
09/25/24 09/26/24 09/27/24
06:59 06:59 06:59
Intake Total 240 / 240 1687.5 / 1687.5
Output Total 0 / 0
Balance 240 / 240 1687.5 / 1687.5
--- NOTE | 2024-09-26 11:32 | W.DCSUMMARY ---
Discharge Summary
Discharge Data
Date of Admission: 09/24/24
Date of Discharge: 09/26/24
-
Pending Results: No
Hospital Course
Discharge diagnosis:
Acute myopericarditis
Chest pain
Nonischemic myocardial injury troponin elevation
Glucose intolerance
Gastroesophageal reflux disease with hiatal hernia
Asthma
Consults: Cardiology
Echocardiogram:
Normal LV size and function without regional wall motion normality.
LVEF is 60-65% by visual estimation. Normal diastolic function.
Normal right ventricular size and function.
Mild mitral regurgitation.
Right heart pressures could not be determined.
No prior study available for comparison.
Hospital course:
49-year-old female with a past medical history of asthma and GERD presented with chest pain. She was found to have an elevated troponin. She was seen in conjunction with cardiology, who suspects she has acute myopericarditis. Patient did have a
viral URI several weeks ago. Cardiology recommends treatment with colchicine 0.6 mg twice daily for at least 3 months, as well as an ibuprofen taper. She was started on pantoprazole for GI protection.
Patient was found to have newly diagnosed glucose intolerance. Her hemoglobin A1c is 5.8. She has been informed of this diagnosis, and counseled to eat a low carbohydrate diet.
After several days, her pain improved. She is medically stable and cleared by cardiology for discharge. She will be discharged on colchicine, ibuprofen taper, and pantoprazole as recommended by cardiology. She needs to follow-up with cardiology
in the office as scheduled, and establish care with a new PCP.
Disposition: Home self-care
Discharge planning: Required 38 minutes
Discharge Plan
-
Patient Disposition: Home (Routine Discharge)
Discharge Diagnosis/Procedures: Acute myopericarditis, prediabetes/glucose intolerance
Condition: Good
Diet: Diabetic, Carb Controlled
Activity: No strenuous activity
Additional Activity: No strenuous activity for 3 months
Driving Restrictions: As prior to admission
Activity Restrictions/Additional Instructions:
Take:
Colchicine 0.6 mg twice daily for at least 3 months.
Ibuprofen taper: 800 mg q6hrs for 1 week, 800 mg 3 times daily for 1 week, then 600 mg 3 times daily for 1 week, then 400 mg 3 times daily for 1 week, then 200 mg 3 times daily for 1 week, then stop.
Follow up with cardiology on October 18 at 1 pm with Precious Dowd.
Referrals:
NONE,* [Family Provider] -
Marguerite Ortiz MD [Active] - in one to two weeks
Prescriptions:
New
pantoprazole 40 mg Tablet,Delayed Release (Dr/Ec)
40 mg PO DAILY 30 Days Qty: 30 0RF
ibuprofen 200 mg tablet
See Rx Instructions .ROUTE .COMPLEX Qty: 360 0RF
Rx Instructions:
800 mg q6hrs for 1 week, 800 mg tid for 1 week, then 600 mg tid for 1 week, 400 mg tid for 1 week, and 200 mg tid for 1 week and stop
colchicine 0.6 mg Tablet
0.6 mg PO BID 90 Days Qty: 180 0RF
Continued
fluticasone propion-salmeterol [Advair Diskus] 250-50 mcg/dose Blister With Device
1 inh INHALATION R BID
bismuth subsalicylate [Pepto-Bismol] 262 mg/15 mL Suspension
524 mg PO DAILYPRN PRN (Reason: STOMACH ISSUSES)
albuterol sulfate 90 mcg/actuation Hfa Aerosol Inhaler
2 puff INHALATION R Q6HPRN PRN (Reason: SOB)
Discontinued
ibuprofen [Advil] 200 mg Tablet
200 mg PO Q6HPRN PRN (Reason: MILD PAIN)
Discharge Orders:
Discharge Patient (As Directed); Ordered 09/26/24
Ordered By: Gus Callejas
Discharge Date and Time
Discharge Date/Time: 09/26/24 14:11
Print Language: VIET[place]ESE
--- NOTE | 2024-09-26 11:42 | PN.CDI ---
CDI
- -
CDI:
Physician Documentation Request
Admit Date: 09/24/24 17:16
Dear Doctor Do,
Clinical Indicators:
Patient admitted with acute myopericarditis.
Troponin trend:
09/24/24 09/24/24 09/25/24
14:18 18:21 00:44
Troponin I 0.197 H* 0.176 H* 0.170 H*
09/25/24
05:06
Troponin I 0.149 H*
Based on the above, could you clarify in the progress notes, the appropriate diagnosis, if significant, that supports the above abnormalities and additional evaluation, monitoring and/or treatment rendered:
Non ischemic myocardial injury
Elevated troponin only
Other
Use of terms such as suspected, likely, concern for, or probable (associated with a specific diagnosis that is being evaluated, monitored, or treated as if it exists) are acceptable and can be coded in the inpatient setting, when documented at the
time of discharge.
Thank you,
Katelyn Sandoval RN BSN
CDI Specialist
available via tiger text
Please use your independent medical judgment in providing your response.
[2024-09-26 11:55] VITALS: BP 139/86
--- NOTE | 2024-09-26 12:44 | CM ---
MD entered order for discharge.
Spoke with pt she said she is ready for discharge today to home.
She said she will drive herself home.
Offered VN she declined need.
PLAN Home no needs
== END 2024-09-26 14:11 | disposition home or self-care (01) | DRG 315 ==
LOC: 4 EAST ACU 17:16
PROVIDERS: Emergency Medicine; Nurse Practitioner; ADMITTING PHYSICIAN Internal Medicine; ATTENDING PHYSICIAN Family Medicine; EMERGENCY PHYSICIAN Emergency Medicine; OTHER PHYSICIAN Internal Medicine Cardiovascular Disease
DX: I30.9 Acute pericarditis, unspecified (principal); I5A Non-ischemic myocardial injury (non-traumatic); K21.9 Gastro-esophageal reflux disease without esophagitis; J45.909 Unspecified asthma, uncomplicated; K44.9 Diaphragmatic hernia without obstruction or gangrene; R73.03 Prediabetes; E66.9 Obesity, unspecified; I25.2 Old myocardial infarction; Z79.51 Long term (current) use of inhaled steroids; Z79.899 Other long term (current) drug therapy; Z82.49 Family history of ischemic heart disease and other diseases of the circulatory system; Z68.28 Body mass index [BMI] 28.0-28.9, adult
CPT/HCPCS: 71045; 71275; 80048; 80053; 80061; 83036; 83690; 83735; 84484; 85025; 85652; 85730; 86140; 93005; 93306; 94640; 96374; 99285; Q9967